=== PATIENT | female | born 1995 | race Caucasian/White ===

== ENCOUNTER 2017-09-07 07:16 | Day surgery (SDC) | payer OTHER ==
[~2017-09-07 07:16] MED LIST: CEFAZOLIN 1 GM/D5W RTU 1 GM/50 ML RTUPB IV PRN; DEXAMETHASONE SOD PHOS INJ 10 MG/1 ML VIAL ONE; FAMOTIDINE INJ/PF 20 MG/2 ML SDV IV ONE; FENTANYL CITRATE INJ/PF 100 MCG/2 ML AMPUL ONE; FENTANYL CITRATE INJ/PF 250 MCG/5 ML AMPULE ONE; GLYCOPYRROLATE INJ 0.4 MG/2 ML VIAL ONE; LIDOCAINE 2% INJ-PF (20 MG/ML) 10 ML AMPUL ONE; MIDAZOLAM 2 MG/2 ML INJ ONE; ONDANSETRON HCL INJ/PF 4 MG/2 ML SDV ONE; PROPOFOL INJ 200 MG/20 ML VIAL IV ONE
[2017-09-07] MEDS ORDERED: SUCCINYLCHOLINE CHLORIDE INJ 200 MG/10 ML VIAL ONE (07:17)
[2017-09-07] MEDS ORDERED: OXYMETAZOLINE HCL 0.05% NASAL SPRAY 15 ML BOTTLE ONE (09:03)
[2017-09-07] MEDS ORDERED: BUPIVACAINE HCL 0.5%/EPI 1:200000 INJ 1.8 ML CARTRIDGE ONE ×2 (09:03→09:49)
[2017-09-07] MEDS ORDERED: MINERAL OIL (STERILE) 10 ML VIAL ONE (09:14)
[2017-09-07] MEDS ORDERED: DEXMEDETOMIDINE INJ 80 MCG/20 ML VIAL IV ONE (11:59)
--- NOTE | 2017-09-12 10:24 | SURGICARE OPERATIVE REPORT E ---
[facility] Operative Report NAME: BHUMIKA STATON AGE: 21Y DATE OF SURGERY: 09/07/2017 ROOM: PREOPERATIVE DIAGNOSES: 1. NASAL DEFORMITIES, ACQUIRED. 2. NASAL SEPTAL DEVIATION, ACQUIRED. 3. CHRONIC NASAL DYSPNEA. 4. CHRONIC NASAL PAIN. 5. BILATERAL INFERIOR TURBINATE HYPERTROPHY. 6. BILATERAL NASAL VALVE COLLAPSE. POSTOPERATIVE DIAGNOSES: 1. NASAL DEFORMITIES, ACQUIRED. 2. NASAL SEPTAL DEVIATION, ACQUIRED. 3. CHRONIC NASAL DYSPNEA. 4. CHRONIC NASAL PAIN. 5. BILATERAL INFERIOR TURBINATE HYPERTROPHY. 6. BILATERAL NASAL VALVE COLLAPSE. OPERATION: 1. Functional endonasal/closed septorhinoplasty with the bony pyramid and cartilaginous components addressed with tip elevation and support. 2. Bilateral inferior turbinate reduction using a submucous resection technique. SURGEON: LUH KING D.O. ANESTHESIA: General endotracheal tube. ANESTHESIA STAFF: NORA Caban. ESTIMATED BLOOD LOSS: 100 mL. FLUIDS: 1550 mL. COMPLICATIONS: None. DRAINS: None. SPONGE COUNT: Verified. NEEDLE COUNT: Verified. MATERIALS FORWARDED SPECIMEN: None. FINDINGS: 1. [id number]-hh-gaskqt right nasal septal deviation involving bone and cartilage. 2. Left maxillary crest spur and a right septal spur. 3. Bilateral inferior turbinate hypertrophy, left greater than right. 4. Bilateral nasal valve collapse. 5. Inadequate nasal tip complex support. 6. Dorsal compartment with irregularities involving bone and cartilage. INDICATIONS: This is a 21-year-old white female who was seen and evaluated in the [facility] office. The patient had been referred for, and the patient complained of a longstanding history of nasal dyspnea over the years. The patient reports a history of nasal trauma. The patient denied a history of previous sinus or nasal surgery. The patient had no history of sinus disease or sinusitis episodes. The patient has desired to undergo nasal surgery to improve her functional nasal airflow for each nasal passage. After extensive discussion with the patient, recommendation and plan was made to proceed with functional endonasal/closed septorhinoplasty with bilateral inferior turbinate reduction. The procedures and all of their risks and complications were all discussed in detail with the patient. She voiced an understanding of the described surgical plan, agreed to proceed, and consent was obtained. PROCEDURE: The patient was taken to the main operating room and placed on the operating room table in the supine position. Appropriate monitors placed. Using mask and IV access, general anesthesia was induced. The patient was next transorally intubated without difficulty. The patient underwent a nasal examination with injection of Marcaine with epinephrine to establish a nasal block. Two Afrin-soaked neuro patties were placed per nasal passage. The patient was prepped and draped in the usual fashion for nasal surgery. The Afrin-soaked neuro patties were removed. A hemitransfixion incision was performed for elevation of the mucoperichondrial periosteal flaps without difficulty. The bony cartilaginous junction was identified and divided and the most mediated portions of septal cartilage and bone were removed. The left maxillary crest and septal spur were removed without difficulty using the chisels and nasal surgical instruments. At this point, the septal cartilage was mobilized from the maxillary crest and anterior nasal spine. Cartilage was harvested for use as grafts later in the case. There was a greater than 1.5 x 1.5 cm cartilaginous *------* that was preserved. At this point, the inferior turbinates were addressed in the following manner: A turbinate bipolar wand was used to make two passes in each superior turbinate followed by each inferior turbinate. At this point, the anterior aspect of each inferior turbinate was entered with a pair of Dagoberto scissors followed by use of a [place] to perform submucous elevation and dissection. At this point, a Theo elevator was used to outfracture each inferior turbinate. Next, a turbinate microdebrider system at a setting of 15 under RPM was used to perform submucous resection on each side. Last, the redundant excessive flaps, excessive mucosa was trimmed and the margins were reapproximated with chromic suture. At this point, the rhinoplasty portion of the case was addressed in the following manner: There were modified marginal incisions performed with elevation of the skin, soft tissue envelope overlying the dorsum in a subperiosteal plane. Next, rasp work was performed to reduce the dorsal hump and bony irregularities. Then an 11 blade scalpel was also used to recess and contour nasal cartilage. Once complete, there were precise pockets that were created for placement of alar lolis grafts. These were secured in place with [id number]-ysukian Prolene suture and Telfa overlying the skin and mucosa for protection. At this point, the nose was irrigated and thoroughly suctioned. Adequate hemostasis was noted. At this point, the cartilage that remained was placed back between the mucosal flaps and banked. At this point, all incisions were reapproximated with chromic suture. Next, a Prolene suture was used to perform a *------* stitch. There were Rodriguez silicone nasal sponges with Bacitracin ointment placed one for nasal passage, and these were secured at the caudal aspect with 4-0 Prolene suture. At this point, the patient's nose was cleaned and dried followed by placement of Mastisol and Steri-Strips. The patient was then returned to the Anesthesia staff and was allowed to emerge from general anesthesia. The patient was extubated in the main operating room without difficulty, and was transported to the postanesthesia recovery unit in stable condition. There were no complications. DICTATING PHYSICIAN: LUH KING D.O. [id number] PHY#: [id number] ID: [id number] JOB#: [id number] ACCT: [id number] cc:LUH KING D.O. >
== END 2017-09-07 15:10 | disposition home or self-care (01) ==
LOC: SC 07:16 → EDBD 11:00 → SC 15:10
PROVIDERS: ATTEND Otolaryngology
PROC: 09UK0JZ Supplement Nasal Mucosa and Soft Tissue with Synthetic Substitute, Open Approach (ICD-10-PCS; 2017-09-07)
PROC: 09TL8ZZ Resection of Nasal Turbinate, Via Natural or Artificial Opening Endoscopic (ICD-10-PCS; principal; 2017-09-07 08:45)
DX: M95.0 Acquired deformity of nose (principal); J34.2 Deviated nasal septum; J34.3 Hypertrophy of nasal turbinates; J45.909 Unspecified asthma, uncomplicated; J34.89 Other specified disorders of nose and nasal sinuses; R06.09 Other forms of dyspnea
CPT/HCPCS: 30140; 30420; J2250; J0690; J3490 ×5; J3010 ×2; J0330; J2405; J2704; S0028; J1100; 170